=== PATIENT | female | born 1965 | race Two or more races ===

== ENCOUNTER 2018-12-13 20:44 | Emergency (ER) | payer MEDICAID ==
[~2018-12-13] VITALS: Ht 162.6 cm; Wt 61.7 kg
[2018-12-13 21:04] VITALS: BP 126/70
[2018-12-13] MEDS: diphenhydrAMINE 50 MG/ML VIAL IM ONE (22:51)
[2018-12-13] MEDS: MORPHINE SULFATE 2 MG/ML SYR IM ONE (22:52)
[2018-12-13 23:08] VITALS: BP 126/70
== END 2018-12-13 23:08 | disposition home or self-care (01) ==
LOC: MED 20:44
DX: B02.29 Other postherpetic nervous system involvement (principal); Z88.0 Allergy status to penicillin
CPT/HCPCS: 96372; 99283; J1200; J2270